=== PATIENT | male | born 1965 | race Caucasian/White ===

== ENCOUNTER 2016-05-17 07:29 | Outpatient (CLI) | payer OTHER ==
[2016-05-17 07:57] LABS: APPEARANCE,URINE Clear (CLEAR); BASOPHILS % 1.1 (0.0-1.5); COLOR,URINE Yellow (YELLOW); EOSINOPHILS % 12.8 % (0.0-6.8); LYMPHOCYTES # 2.2 # k/uL (0.6-4.0); MEAN CORPUSCULAR HEMOGLOBIN 33.6 pg (28.0-34.0); MONOCYTES # 0.4 # k/uL (0.0-0.9); MONOCYTES % 5.4 % (0.0-11.0); NEUTROPHILS # 3.1 # k/uL (1.4-7.7); OCCULT BLOOD,URINE Trace-intact (NEGATIVE); UROBILINOGEN URINE 0.2 Eu (0.2-1.0)
[2016-05-17 08:15] LABS: eGFR (African) > 60; eGFR (Non-African) > 60
== END 2016-05-17 07:30 ==
LOC: LAB 07:29
PROVIDERS: ATTEND Internal Medicine Nephrology
DX: E11.9 Type 2 diabetes mellitus without complications (principal); I10 Essential (primary) hypertension
CPT/HCPCS: 36415; 80053; 80061; 81002; 82043; 83036; 85025

== ENCOUNTER 2016-05-23 13:34 | Outpatient (CLI) | payer OTHER | END 2016-05-23 13:35 | LOC: NEPHRO 13:34 | PROVIDERS: ATTEND Internal Medicine Nephrology | DX: I10 Essential (primary) hypertension (principal); E11.9 Type 2 diabetes mellitus without complications | CPT/HCPCS: 99213 ==

== ENCOUNTER 2016-11-15 07:39 | Outpatient (CLI) | payer OTHER ==
[2016-11-15 08:07] LABS: BASOPHILS % 0.9 (0.0-1.5); EOSINOPHILS % 12.8 % (0.0-6.8); MEAN CORPUSCULAR HEMOGLOBIN 33.1 pg (28.0-34.0); MEAN CORPUSCULAR VOLUME 97.4 fl (80.0-100.0); MONOCYTES % 4.8 % (0.0-11.0); NEUTROPHILS # 3.4 # k/uL (1.4-7.7)
[2016-11-15 08:25] LABS: eGFR (African) > 60; eGFR (Non-African) > 60
[2016-11-15 09:27] LABS: APPEARANCE,URINE CLEAR (CLEAR); COLOR,URINE YELLOW (YELLOW); OCCULT BLOOD,URINE NEGATIVE (NEGATIVE); PH URINE 5.5 (5.0 - 8.0); UROBILINOGEN URINE 0.2 Eu (0.2-1.0)
== END 2016-11-15 07:40 ==
LOC: LAB 07:39
PROVIDERS: ATTEND Internal Medicine Nephrology
DX: E10.21 Type 1 diabetes mellitus with diabetic nephropathy (principal); I10 Essential (primary) hypertension
CPT/HCPCS: 36415; 80053; 80061; 81002; 82043; 82306; 83036; 85025

== ENCOUNTER 2016-11-21 13:28 | Outpatient (CLI) | payer OTHER | END 2016-11-21 13:30 | LOC: NEPHRO 13:28 | PROVIDERS: ATTEND Internal Medicine Nephrology | DX: I10 Essential (primary) hypertension (principal); E11.9 Type 2 diabetes mellitus without complications | CPT/HCPCS: 99213 ==

== ENCOUNTER 2017-04-27 07:36 | Outpatient (CLI) | payer OTHER ==
[2017-04-27 07:54] LABS: APPEARANCE,URINE Clear (CLEAR); COLOR,URINE Yellow (YELLOW); OCCULT BLOOD,URINE Trace-intact (NEGATIVE); UROBILINOGEN URINE 0.2 Eu (0.2-1.0)
[2017-04-27 07:58] LABS: BASOPHILS % 0.9 (0.0-1.5); EOSINOPHILS % 10.5 % (0.0-6.8); MEAN CORPUSCULAR HEMOGLOBIN 33.5 pg (28.0-34.0); MEAN CORPUSCULAR VOLUME 101.3 fl (80.0-100.0); MONOCYTES % 4.6 % (0.0-11.0)
[2017-04-27 08:38] LABS: eGFR (African) > 60; eGFR (Non-African) > 60
== END 2017-04-27 07:37 ==
LOC: LAB 07:36
PROVIDERS: ATTEND Internal Medicine Nephrology
DX: E11.9 Type 2 diabetes mellitus without complications (principal); I10 Essential (primary) hypertension
CPT/HCPCS: 36415; 80053; 80061; 81002; 82043; 83036; 85025

== ENCOUNTER 2017-05-08 13:39 | Outpatient (CLI) | payer OTHER | END 2017-05-08 13:40 | LOC: NEPHRO 13:39 | PROVIDERS: ATTEND Internal Medicine Nephrology | DX: I10 Essential (primary) hypertension (principal); E11.9 Type 2 diabetes mellitus without complications; J30.9 Allergic rhinitis, unspecified | CPT/HCPCS: 99213 ==

== ENCOUNTER 2017-11-14 07:23 | Outpatient (CLI) | payer OTHER ==
[2017-11-14 08:15] LABS: APPEARANCE,URINE CLEAR (CLEAR); COLOR,URINE YELLOW (YELLOW); OCCULT BLOOD,URINE NEGATIVE (NEGATIVE); PH URINE 5.5 (5.0 - 8.0); UROBILINOGEN URINE 0.2 Eu (0.2-1.0)
[2017-11-14 08:16] LABS: BASOPHILS % 0.5 (0.0-1.5); EOSINOPHILS % 8.2 % (0.0-6.8); MEAN CORPUSCULAR HEMOGLOBIN 32.3 pg (28.0-34.0); MEAN CORPUSCULAR VOLUME 97.4 fl (80.0-100.0); MONOCYTES % 6.1 % (0.0-11.0); NEUTROPHILS # 3.6 # k/uL (1.4-7.7)
[2017-11-14 09:18] LABS: eGFR (African) > 60; eGFR (Non-African) > 60
== END 2017-11-14 07:24 ==
LOC: LAB 07:23
PROVIDERS: ATTEND Internal Medicine Nephrology
DX: E11.9 Type 2 diabetes mellitus without complications (principal); I10 Essential (primary) hypertension; R80.9 Proteinuria, unspecified
CPT/HCPCS: 36415; 80053; 80061; 81002; 82043; 82570; 83036; 83970; 85025

== ENCOUNTER 2017-11-20 14:39 | Outpatient (CLI) | payer OTHER | END 2017-11-20 14:40 | LOC: NEPHRO 14:39 | PROVIDERS: ATTEND Internal Medicine Nephrology | DX: E11.9 Type 2 diabetes mellitus without complications (principal); I10 Essential (primary) hypertension | CPT/HCPCS: 99213 ==